=== PATIENT | female | born 1945 | race Caucasian/White ===

== ENCOUNTER → 2017-06-16 | Outpatient (CLI) | payer MEDICARE, OTHER ==
[~2017-06-16] MED LIST: BISO1TAB3 PC; BISO1TAB63; LEVO150T6 PO; LEVO175T3; LISI10TA2; NAPR-243 PO; PRD20T PO
== END ==
LOC: RAD 09:57
PROVIDERS: ATTEND Internal Medicine
DX: Z12.31 Encounter for screening mammogram for malignant neoplasm of breast (principal)
CPT/HCPCS: 77067

== ENCOUNTER → 2017-06-29 | Outpatient (CLI) | payer MEDICARE, OTHER ==
--- NOTE | 2017-06-29 08:13 | Diagnostic Imaging Report ---
PROCEDURE: US abdomen complete. TECHNIQUE: Multiple real-time grayscale images were obtained over the abdomen in various projections. INDICATION: Right upper quadrant pain. FINDINGS: The pancreas is obscured by bowel gas. The liver is enlarged measuring 20 cm craniocaudally with increased echogenicity suggestive of fatty infiltration or hepatitis. The color flow demonstrates hepatopetal flow in the portal vein. The gallbladder has been surgically removed. The spleen is 10.5 cm in length. The CBD is obscured. The right kidney is 10 and the left kidney is 11.6 cm in length. There is no hydronephrosis or focal lesion. The abdominal aorta is 2 cm in caliber and the IVC appears unremarkable. No fluid collection in the abdomen or ascites is seen. IMPRESSION: The liver is enlarged with increased echogenicity suggestive of fatty infiltration or hepatitis. Dictated by: Dictated on workstation # [id number]
== END ==
LOC: RAD 07:01
PROVIDERS: ATTEND Nurse Practitioner
DX: R16.0 Hepatomegaly, not elsewhere classified (principal); R10.11 Right upper quadrant pain
CPT/HCPCS: 76700

== ENCOUNTER → 2017-07-01 | Outpatient (CLI) | payer MEDICARE, OTHER | LOC: LAB 15:28 | PROVIDERS: ATTEND Internal Medicine | DX: R93.2 Abnormal findings on diagnostic imaging of liver and biliary tract (principal); K75.9 Inflammatory liver disease, unspecified | CPT/HCPCS: 36415; 80074 ==

== ENCOUNTER 2017-11-11 20:00 | Emergency (ER) | payer MEDICARE, OTHER ==
[~2017-11-11] VITALS: Ht 162.6 cm; Wt 90.7 kg
[2017-11-11] MEDS ORDERED: NS IV 1000 ML 1,000 ML IV ONE (20:23)
[2017-11-11 20:32] LABS: BASOPHILS % (AUTO) 0 % (0-10); EOSINOPHILS # (AUTO) 0.1 10^3/uL (0.0-0.3); EOSINOPHILS % (AUTO) 2 % (0-10); HEMATOCRIT 38 % (35-52); HEMOGLOBIN 13.9 G/DL (11.5-16.0); LYMPHOCYTES # (AUTO) 1.3 X 10^3 (1.0-4.0); LYMPHOCYTES % (AUTO) 27 % (12-44); MEAN CORPUSCULAR HEMOGLOBIN 31 PG (25-34); MEAN CORPUSCULAR HGB CONC 37 G/DL (32-36); MEAN CORPUSCULAR VOLUME 84 FL (80-99); MEAN PLATELET VOLUME 9.8 FL (7.4-10.4); MONOCYTES # (AUTO) 0.4 X 10^3 (0.0-1.0); MONOCYTES % (AUTO) 8 % (0-12); NEUTROPHILS % (AUTO) 63 % (42-75); PLATELET COUNT 256 10^3/uL (130-400); RED BLOOD COUNT 4.52 10^6/uL (4.35-5.85); RED CELL DISTRIBUTION WIDTH 12.5 % (10.0-14.5); WHITE BLOOD COUNT 4.8 10^3/uL (4.3-11.0)
[2017-11-11 21:01] LABS: ALBUMIN 4.1 GM/DL (3.2-4.5); BILIRUBIN,TOTAL 0.4 MG/DL (0.1-1.0); CALCIUM 9.3 MG/DL (8.5-10.1); CREATININE SERUM 1.23 MG/DL (0.60-1.30); POTASSIUM 4.1 MMOL/L (3.6-5.0); TOTAL PROTEIN 7.3 GM/DL (6.4-8.2)
[2017-11-11 21:18] LABS: BILIRUBIN,URINE NEGATIVE (NEGATIVE); CLARITY,URINE CLEAR; COLOR,URINE YELLOW; GLUCOSE, URINE (UA) 4+ (NEGATIVE); KETONES,URINE 1+ (NEGATIVE); LEUKOCYTE ESTERASE ,URINE 1+ (NEGATIVE); NITRITE,URINE POSITIVE (NEGATIVE); PH,URINE 5 (5-9); PROTEIN,URINE NEGATIVE (NEGATIVE); UROBILINOGEN,URINE NORMAL (NORMAL)
[2017-11-11 21:21] LABS: FREE T4 (FREE THYROXINE) 1.36 NG/DL (0.70-1.48)
[2017-11-11 21:25] LABS: BACTERIA,URINE FEW /HPF; RBC,URINE RARE /HPF
[2017-11-11] MEDS ORDERED: NS IV 500 ML 500 ML IV ONE (21:36)
[2017-11-11] MEDS ORDERED: cefTRIAXone INJECTION 1,000 MG in NS (IVPB) 50 ML IV ONE (21:45)
[2017-11-11] MEDS ORDERED: inSUlin (REGULAR) HUMAN 1 UNIT/0.01 ML (CHARGE PER UNIT) SC ONE (21:45)
--- NOTE | 2017-11-11 21:49 | ED General ---
General Chief Complaint: Glucose Problems Stated Complaint: BLOOD GLUCOSE LEVEL OF 576 Nursing Triage Note: PT PRESENTS TO ER WITH COMPLAINT OF HIGH BLOOD SUGAR. PT STATES BLOOD SUGAR AT HOME WAS 576. PT STATES THAT SHE WAS HAVING DRY MOUTH AND INCREASED THIRST AND SOMEONE TOLD HER TO CHECK HER BLOOD SUGAR. SHE STATES SHE USED HER HUSBANDS GLUCOMETER TO CHECK IT. Nursing Sepsis Screen: No Definite Risk Source of Information: Patient Exam Limitations: No Limitations History of Present Illness Date Seen by Provider: Nov 11, 2017 Time Seen by Provider: 20:20 Initial Comments This 72-year-old woman presents to emergency room with complaints of polydipsia and polyuria. She checked her blood sugar at the advice of her family and found it to be 536. She has no history of diabetes but has had some borderline blood sugars in the past. She also reports having a recent vaginal candidiasis which she treated with Monistat. She has hypertension and hypothyroidism. Her primary care provider is Dr. Blake. Her fingerstick blood sugar on presentation was 513. Allergies and Home Medications Allergies Coded Allergies: No Known Drug Allergies (Unverified , 11/11/17) Home Medications Bisoprolol Fumarate/Hctz 1 Each Tablet, 1 TAB PC BID, #60 (Reported) Cephalexin 500 Mg Capsule, 500 MG PO TID, #15 Prescribed by: MILES CROWLEY on 11/11/17 2218 Levothyroxine Sodium 150 Mcg Tablet, 1 TAB PO DAILY, #90 (Reported) Prednisone 20 Mg Tab, 20 MG PO BID, #2 Prescribed by: VIKY FINN on 04/13/16 2252 Constitutional: no symptoms reported EENTM: no symptoms reported Respiratory: no symptoms reported Cardiovascular: no symptoms reported Gastrointestinal: no symptoms reported Genitourinary: see HPI : No Musculoskeletal: no symptoms reported Skin: no symptoms reported Psychiatric/Neurological: No Symptoms Reported Hematologic/Lymphatic: No Symptoms Reported Past Omjxkvi-Fqsrmi-Xinzli Hx Patient Social History Alcohol Use: Denies Use Recreational Drug Use: No Smoking Status: Never a Smoker Recent Foreign Travel: No Contact w/Someone Who Travel: No Recent Infectious Disease Expo: No Immunizations Up To Date Tetanus Booster (TDap): Unknown Seasonal Allergies Seasonal Allergies: No Surgeries History of Surgeries: Yes Surgeries: Gallbladder, Orthopedic Respiratory History of Respiratory Disorde: No Cardiovascular History of Cardiac Disorders: Yes Cardiac Disorders: Hypertension Neurological History of Neurological Disord: No 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 Genitourinary History of Genitourinary Disor: No Gastrointestinal History of Gastrointestinal Di: No Musculoskeletal History of Musculoskeletal Dis: No Endocrine History of Endocrine Disorders: Yes Endocrine Disorders: Hypothyroidsim, Diabetes, Non-Insulin dep HEENT History of HEENT Disorders: No Cancer History of Cancer: No Psychosocial History of Psychiatric Problem: No Integumentary History of Skin or Integumenta: No Blood Transfusions History of Blood Disorders: No Physical Exam Vital Signs Vital Signs - First Documented 11/11/17 20:20 Temp 98.0 Pulse 80 Resp 18 B/P (MAP) 197/111 (139) Pulse Ox 97 O2 Delivery Room Air Capillary Refill : Less Than 3 Seconds General Appearance: No Apparent Distress, WD/WN HEENT: PERRL/EOMI, Normal ENT Inspection, Pharynx Normal Neck: Normal Inspection Respiratory: Lungs Clear, Normal Breath Sounds, No Accessory Muscle Use, No Respiratory Distress Cardiovascular: Regular Rate, Rhythm, No Edema, No Murmur Gastrointestinal: Normal Bowel Sounds, Non Tender, Soft Extremity: Normal Inspection, No Pedal Edema Neurologic/Psychiatric: Alert, Oriented x3, No Motor/Sensory Deficits, Normal 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, 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 Norm as Tested Skin: Normal Color, Warm/Dry Progress/Results/Core Measures Suspected Sepsis Recent Fever Within 48 Hours: No Infection Criteria Present: None New/Unexplained Altered Menta: No Sepsis Screen: No Definite Risk Sepsis Diagnosis: SIRS Temperature:98.0 Pulse: 80 Respiratory Rate: 18 Laboratory Tests 11/11/17 20:20: White Blood Count 4.8 Blood Pressure 197 /111 Mean: 139 Laboratory Tests 11/11/17 20:20: Creatinine 1.23, Platelet Count 256, Total Bilirubin 0.4 Results/Orders Lab Results Laboratory Tests Test 11/11/17 20:20 11/11/17 21:09 11/11/17 22:18 11/11/17 22:45 Range/Units White Blood Count 4.8 4.3-11.0 10^3/uL Red Blood Count 4.52 4.35-5.85 10^6/uL Hemoglobin 13.9 11.5-16.0 G/DL Hematocrit 38 35-52 % Mean Corpuscular Volume 84 80-99 FL Mean Corpuscular Hemoglobin 31 25-34 PG Mean Corpuscular Hemoglobin Concent 37 H 32-36 G/DL Red Cell Distribution Width 12.5 10.0-14.5 % Platelet Count 256 130-400 10^3/uL Mean Platelet Volume 9.8 7.4-10.4 FL Neutrophils (%) (Auto) 63 42-75 % Lymphocytes (%) (Auto) 27 12-44 % Monocytes (%) (Auto) 8 0-12 % Eosinophils (%) (Auto) 2 0-10 % Basophils (%) (Auto) 0 0-10 % Neutrophils # (Auto) 3.0 1.8-7.8 X 10^3 Lymphocytes # (Auto) 1.3 1.0-4.0 X 10^3 Monocytes # (Auto) 0.4 0.0-1.0 X 10^3 Eosinophils # (Auto) 0.1 0.0-0.3 10^3/uL Basophils # (Auto) 0.0 0.0-0.1 10^3/uL Sodium Level 135 135-145 MMOL/L Potassium Level 4.1 3.6-5.0 MMOL/L Chloride Level 101 98-107 MMOL/L Carbon Dioxide Level 20 L 21-32 MMOL/L Anion Gap 14 5-14 MMOL/L Blood Urea Nitrogen 13 7-18 MG/DL Creatinine 1.23 0.60-1.30 MG/DL Estimat Glomerular Filtration Rate 43 BUN/Creatinine Ratio 11 Glucose Level 595 *H 70-105 MG/DL Glucometer 513 *H 421 *H 331 H 70-110 MG/DL Calcium Level 9.3 8.5-10.1 MG/DL Total Bilirubin 0.4 0.1-1.0 MG/DL Aspartate Amino Transf (AST/SGOT) 16 5-34 U/L Alanine Aminotransferase (ALT/SGPT) 24 0-55 U/L Alkaline Phosphatase 77 40-136 U/L Total Protein 7.3 6.4-8.2 GM/DL Albumin 4.1 3.2-4.5 GM/DL Thyroid Stimulating Hormone (TSH) 3.91 0.35-4.94 UIU/ML Free Thyroxine 1.36 0.70-1.48 NG/DL Urine Color YELLOW Urine Clarity CLEAR Urine pH 5 5-9 Urine Specific [place] 1.010 L 1.016-1.022 Urine Protein NEGATIVE NEGATIVE Urine Glucose (UA) 4+ H NEGATIVE Urine Ketones 1+ H NEGATIVE Urine Nitrite POSITIVE H NEGATIVE Urine Bilirubin NEGATIVE NEGATIVE Urine Urobilinogen NORMAL NORMAL MG/DL Urine Leukocyte Esterase 1+ H NEGATIVE Urine RBC (Auto) 1+ H NEGATIVE Urine RBC RARE /HPF Urine WBC 2-5 /HPF Urine Squamous Epithelial Cells 5-10 /HPF Urine Crystals NONE /LPF Urine Bacteria FEW H /HPF Urine Casts NONE /LPF Urine Mucus NEGATIVE /LPF Urine Culture Indicated YES My Orders Orders - MILES FERGUSON MD Accucheck Stat ONCE (11/11/17 20:05) Cbc With Automated Diff (11/11/17 20:23) Comprehensive Metabolic Panel (11/11/17 20:23) Ua Culture If Indicated (11/11/17 20:23) Saline Lock/Iv-Start (11/11/17 20:23) Ns Iv 1000 Ml (Sodium Chloride 0.9%) (11/11/17 20:23) Accucheck Stat ONCE (11/11/17 20:23) Thyroid Stimulating Hormone (11/11/17 20:23) Free T4 (Free Thyroxine) (11/11/17 20:23) Urine Culture (11/11/17 21:09) Insulin (Regular) Human (Humulin R (Per (11/11/17 21:45) Ns Iv 500 Ml (Sodium Chloride 0.9%) (11/11/17 21:36) Ceftriaxone Injection (Rocephin Injectio (11/11/17 21:45) Insulin (Regular) Human (Humulin R (Per (11/11/17 22:30) Hemoglobin A1c (11/11/17 22:23) Accucheck Stat ONCE (11/11/17 22:28) Medications Given in ED Current Medications Medications Dose Ordered Sig/Dane Route Start Time Stop Time Status Last Admin Dose Admin Ceftriaxone Sodium 1000 mg/ Sodium Chloride 50 ml @ 100 mls/hr ONCE ONCE IV 11/11/17 21:45 11/11/17 22:14 DC 11/11/17 21:48 100 MLS/HR Insulin Human Regular 5 unit ONCE ONCE IV 11/11/17 22:30 11/11/17 22:31 DC 11/11/17 22:24 5 UNIT Insulin Human Regular 5 unit ONCE ONCE SC 11/11/17 21:45 11/11/17 21:46 DC 11/11/17 21:49 5 UNIT Sodium Chloride 500 ml @ 0 mls/hr Q0M ONCE IV 11/11/17 21:36 11/11/17 21:37 DC 11/11/17 21:47 500 MLS/HR Sodium Chloride 1,000 ml @ 0 mls/hr Q0M ONCE IV 11/11/17 20:23 11/11/17 20:25 DC 11/11/17 20:31 1,000 MLS/HR Vital Signs/I&O Vital Sign - Last 12Hours 11/11/17 20:20 Temp 98.0 Pulse 80 Resp 18 B/P (MAP) 197/111 (139) Pulse Ox 97 O2 Delivery Room Air Capillary Refill : Less Than 3 Seconds Blood Pressure Mean: 139 Point of Care Testing Finger Stick Blood Glucose: 513 Blood Glucose Action Taken: AND RN NOTIFIED Progress Note #1: Progress Note Patient received 1500 mL of normal saline and IV boluses along with 5 units of insulin. Rocephin was given for possible urinary tract infection. Thyroid studies were normal. Progress Note #2: Time: 22:24 Progress Note Fingerstick blood sugar was 421. Patient will receive another 5 units of IV insulin. We will continue to treat in 5 unit dosing increments until her blood sugar is down near 300. Progress Note #3: Time: 22:55 Progress Note Fingerstick blood sugar after the second dose of insulin was 331. Patient was felt stable enough to return home and was discharged with prescriptions for metformin and Keflex. Departure Impression Impression: Primary Impression: New onset type 2 diabetes mellitus Additional Impressions: Hyperglycemia Urinary tract infection Qualified Codes: N39.0 - Urinary tract infection, site not specified Disposition: 01 HOME, SELF-CARE Condition: Improved Departure-Patient Inst. Referrals: MEJIA BLAKE MD (PCP/Family) Primary Care Physician Patient Instructions: Diabetes Type 2 (DC), Urinary Tract Infections in Adults Add. Discharge Instructions: Drink plenty of clear liquids. Eat a very low carbohydrate, low sugar diet. Eat plenty of lean meats and vegetables. Start metformin as prescribed. Check your blood sugars fasting in the morning and 2 hours after meals. Bring those blood sugars to Dr. Blake. Complete your antibiotics as prescribed and follow-up on the urine culture results with Dr. Blake after 48 hours. Return to the ER if you have worsening symptoms. All discharge instructions reviewed with patient and/or family. Voiced understanding. Scripts Metformin HCl (Metformin HCl) 500 Mg Tablet 500 MG PO BID, #60 TAB Prov: MILES FERGUSON MD 11/11/17 Cephalexin (Keflex) 500 Mg Capsule 500 MG PO TID, #15 CAP Prov: MILES FERGUSON MD 11/11/17 Copy Copies To 1: MEJIA BLAKE MD, JOSHUA T MD Nov 11, 2017 21:49
[2017-11-11] MEDS ORDERED: CEPH-507 PO (22:18)
[2017-11-11] MEDS ORDERED: inSUlin (REGULAR) HUMAN 1 UNIT/0.01 ML (CHARGE PER UNIT) IV ONE (22:30)
[2017-11-11] MEDS ORDERED: METF500T4 PO (22:56)
[2017-11-11 23:01] VITALS: BP 176/79
== END 2017-11-11 23:01 | disposition home or self-care (01) ==
LOC: EDUNIT# 20:00 → ER 20:02
DX: E11.65 Type 2 diabetes mellitus with hyperglycemia (principal); N39.0 Urinary tract infection, site not specified; I10 Essential (primary) hypertension; E03.9 Hypothyroidism, unspecified; Z79.52 Long term (current) use of systemic steroids
CPT/HCPCS: 36415; 80053; 81000; 82962; 83036; 84439; 84443; 85025; 87088; 96361; 96365; 96372; 96375

== ENCOUNTER 2017-11-16 20:49 | Emergency (ER) | payer MEDICARE, OTHER ==
[~2017-11-16] VITALS: Ht 167.6 cm; Wt 86.2 kg
[~2017-11-16 20:49] MED LIST changes: +CEPH-507 PO; +METF500T4 PO
--- NOTE | 2017-11-16 22:50 | ED General ---
General Chief Complaint: Glucose Problems Stated Complaint: ELEV BLOOD SUGAR Nursing Triage Note: PT STATES BLOOD SUGAR HIGH AND NEEDS TO FLY TO [place] ON THURSDAY. FSBS 399 AT HOME Nursing Sepsis Screen: No Definite Risk Source of Information: Patient Exam Limitations: No Limitations History of Present Illness Date Seen by Provider: Nov 16, 2017 Time Seen by Provider: 22:50 Allergies and Home Medications Allergies Coded Allergies: No Known Drug Allergies (Unverified , 11/11/17) Home Medications Bisoprolol Fumarate/Hctz 1 Each Tablet, 1 TAB PC BID, #60 (Reported) Cephalexin 500 Mg Capsule, 500 MG PO TID, #15 Prescribed by: MILES CROWLEY on 11/11/17 2218 Levothyroxine Sodium 150 Mcg Tablet, 1 TAB PO DAILY, #90 (Reported) Metformin HCl 500 Mg Tablet, 500 MG PO BID, #60 Prescribed by: MILES CROWLEY on 11/11/17 2256 Prednisone 20 Mg Tab, 20 MG PO BID, #2 Prescribed by: VIKY FINN on 04/13/16 2252 Past Mbimbbt-Cggoar-Hnmfjb Hx Patient Social History Alcohol Use: Denies Use Recreational Drug Use: No Smoking Status: Never a Smoker Recent Foreign Travel: No Contact w/Someone Who Travel: No Recent Infectious Disease Expo: No Recent Hopitalizations: No Immunizations Up To Date Tetanus Booster (TDap): Unknown Seasonal Allergies Seasonal Allergies: No Surgeries History of Surgeries: Yes Surgeries: Gallbladder, Orthopedic Respiratory History of Respiratory Disorde: No Cardiovascular History of Cardiac Disorders: Yes Cardiac Disorders: Hypertension Neurological History of Neurological Disord: No 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 Genitourinary History of Genitourinary Disor: No Gastrointestinal History of Gastrointestinal Di: No Musculoskeletal History of Musculoskeletal Dis: No Endocrine History of Endocrine Disorders: Yes Endocrine Disorders: Hypothyroidsim, Diabetes, Non-Insulin dep HEENT History of HEENT Disorders: No Cancer History of Cancer: No Psychosocial History of Psychiatric Problem: No Integumentary History of Skin or Integumenta: No Blood Transfusions History of Blood Disorders: No Physical Exam Vital Signs Vital Signs - First Documented 11/16/17 20:52 Temp 98.1 Pulse 64 Resp 18 B/P (MAP) 141/82 (101) Pulse Ox 97 Capillary Refill : Less Than 3 Seconds Progress/Results/Core Measures Suspected Sepsis Recent Fever Within 48 Hours: No Infection Criteria Present: None New/Unexplained Altered Menta: No Sepsis Screen: No Definite Risk Sepsis Diagnosis: SIRS Temperature:98.1 Pulse: 64 Respiratory Rate: 18 Laboratory Tests 11/16/17 23:32: White Blood Count 3.9L Blood Pressure 141 /82 Mean: 101 Laboratory Tests 11/16/17 23:32: Creatinine 1.05, Platelet Count 263, Total Bilirubin 0.5 Results/Orders Lab Results Laboratory Tests Test 11/16/17 22:23 11/16/17 22:38 11/16/17 23:32 Range/Units Urine Color YELLOW Urine Clarity CLEAR Urine pH 5 5-9 Urine Specific [place] 1.015 L 1.016-1.022 Urine Protein 1+ H NEGATIVE Urine Glucose (UA) 4+ H NEGATIVE Urine Ketones 1+ H NEGATIVE Urine Nitrite NEGATIVE NEGATIVE Urine Bilirubin NEGATIVE NEGATIVE Urine Urobilinogen NORMAL NORMAL MG/DL Urine Leukocyte Esterase 1+ H NEGATIVE Urine RBC (Auto) NEGATIVE NEGATIVE Urine RBC 0-2 /HPF Urine WBC 2-5 /HPF Urine Crystals NONE /LPF Urine Bacteria NONE /HPF Urine Casts NONE /LPF Urine Mucus NEGATIVE /LPF Urine Culture Indicated NO Glucometer 346 H 70-110 MG/DL White Blood Count 3.9 L 4.3-11.0 10^3/uL Red Blood Count 4.66 4.35-5.85 10^6/uL Hemoglobin 14.3 11.5-16.0 G/DL Hematocrit 39 35-52 % Mean Corpuscular Volume 84 80-99 FL Mean Corpuscular Hemoglobin 31 25-34 PG Mean Corpuscular Hemoglobin Concent 37 H 32-36 G/DL Red Cell Distribution Width 12.5 10.0-14.5 % Platelet Count 263 130-400 10^3/uL Mean Platelet Volume 9.6 7.4-10.4 FL Neutrophils (%) (Auto) 54 42-75 % Lymphocytes (%) (Auto) 36 12-44 % Monocytes (%) (Auto) 9 0-12 % Eosinophils (%) (Auto) 1 0-10 % Basophils (%) (Auto) 0 0-10 % Neutrophils # (Auto) 2.1 1.8-7.8 X 10^3 Lymphocytes # (Auto) 1.4 1.0-4.0 X 10^3 Monocytes # (Auto) 0.3 0.0-1.0 X 10^3 Eosinophils # (Auto) 0.0 0.0-0.3 10^3/uL Basophils # (Auto) 0.0 0.0-0.1 10^3/uL Sodium Level 135 135-145 MMOL/L Potassium Level 3.9 3.6-5.0 MMOL/L Chloride Level 101 98-107 MMOL/L Carbon Dioxide Level 21 21-32 MMOL/L Anion Gap 13 5-14 MMOL/L Blood Urea Nitrogen 15 7-18 MG/DL Creatinine 1.05 0.60-1.30 MG/DL Estimat Glomerular Filtration Rate 52 BUN/Creatinine Ratio 14 Glucose Level 406 *H 70-105 MG/DL Calcium Level 9.5 8.5-10.1 MG/DL Total Bilirubin 0.5 0.1-1.0 MG/DL Aspartate Amino Transf (AST/SGOT) 16 5-34 U/L Alanine Aminotransferase (ALT/SGPT) 23 0-55 U/L Alkaline Phosphatase 68 40-136 U/L Total Protein 6.9 6.4-8.2 GM/DL Albumin 3.9 3.2-4.5 GM/DL Lipase 9 8-78 U/L TSH Mc[place]osh Testing 4.12 0.35-4.94 UIU/ML My Orders Orders - ZINA GOODEN Cbc With Automated Diff (11/16/17 23:08) Comprehensive Metabolic Panel (11/16/17 23:08) Lipase (11/16/17 23:08) Thyroid Analyzer (11/16/17 23:08) Ua Culture If Indicated (11/16/17 23:08) Saline Lock/Iv-Start (11/16/17 23:08) Ns Iv 1000 Ml (Sodium Chloride 0.9%) (11/16/17 23:08) Insulin (Regular) Human (Humulin R (Per (11/16/17 23:08) Ct Abdomen/Pelvis W (11/16/17 23:08) Iohexol Injection (Omnipaque 350 Mg/Ml 1 (11/17/17 00:00) Pharmacy Communication (Pharmacy Communi (11/16/17 23:53) Pharmacy Communication (Pharmacy Communi (11/16/17 23:53) Accucheck Stat ONCE (11/17/17 00:32) Medications Given in ED Current Medications Medications Dose Ordered Sig/Dane Route Start Time Stop Time Status Last Admin Dose Admin Iohexol 100 ml ONCE ONCE IV 11/17/17 00:00 11/17/17 00:01 DC 11/16/17 23:58 100 ML Sodium Chloride 1,000 ml @ 0 mls/hr Q0M ONCE IV 11/16/17 23:08 11/16/17 23:10 DC 11/16/17 23:41 0 MLS/HR Vital Signs/I&O Vital Sign - Last 12Hours 11/16/17 20:52 Temp 98.1 Pulse 64 Resp 18 B/P (MAP) 141/82 (101) Pulse Ox 97 Capillary Refill : Less Than 3 Seconds Blood Pressure Mean: 101 Point of Care Testing Finger Stick Blood Glucose: 346 Blood Glucose Action Taken: nicole gooden notified Departure Impression Impression: Primary Impression: Diabetes mellitus with hyperglycemia Qualified Codes: E11.65 - Type 2 diabetes mellitus with hyperglycemia Additional Impressions: Urinary tract infection Qualified Codes: N30.00 - Acute cystitis without hematuria Volume depletion Disposition: HOME, SELF-CARE Condition: Improved Departure-Patient Inst. Decision time for Depature: 00:43 Referrals: MEJIA BLAKE MD (PCP/Family) Primary Care Physician Patient Instructions: Dehydration, Adult (DC), Diabetes Diet , Diabetes Type 2 (DC), Urinary Tract Infection, Adult (DC) Add. Discharge Instructions: All discharge instructions reviewed with patient and/or family. Voiced understanding. Medications as instructed. Monitor blood sugars closely. Continue home medications as instructed by Dr. Blake. Drink plenty of fluids. Follow-up with Dr. Blake when he returned from [place] for recheck as previously scheduled. Call Dr. Blake's office tomorrow afternoon to give an update on your blood sugars. Return to the emergency department immediately for worsened symptoms or any other concerns. Scripts Ampicillin Trihydrate (Ampicillin Trihydrate) 500 Mg Capsule 500 MG PO QID, #20 CAP 0 Refills Prov: ZINA GOODEN 11/17/17 ZINA GOODEN Nov 16, 2017 22:50
[2017-11-16] MEDS ORDERED: NS IV 1000 ML 1,000 ML IV ONE (23:08)
[2017-11-16] MEDS ORDERED: inSUlin (REGULAR) HUMAN 1 UNIT/0.01 ML (CHARGE PER UNIT) IV STA (23:08)
[2017-11-16 23:28] LABS: BILIRUBIN,URINE NEGATIVE (NEGATIVE); CLARITY,URINE CLEAR; COLOR,URINE YELLOW; GLUCOSE, URINE (UA) 4+ (NEGATIVE); KETONES,URINE 1+ (NEGATIVE); LEUKOCYTE ESTERASE ,URINE 1+ (NEGATIVE); NITRITE,URINE NEGATIVE (NEGATIVE); PH,URINE 5 (5-9); PROTEIN,URINE 1+ (NEGATIVE); RBC,URINE 0-2 /HPF; UROBILINOGEN,URINE NORMAL (NORMAL)
[2017-11-16 23:42] LABS: BASOPHILS % (AUTO) 0 % (0-10); EOSINOPHILS % (AUTO) 1 % (0-10); HEMATOCRIT 39 % (35-52); HEMOGLOBIN 14.3 G/DL (11.5-16.0); LYMPHOCYTES # (AUTO) 1.4 X 10^3 (1.0-4.0); LYMPHOCYTES % (AUTO) 36 % (12-44); MEAN CORPUSCULAR HEMOGLOBIN 31 PG (25-34); MEAN CORPUSCULAR HGB CONC 37 G/DL (32-36); MEAN CORPUSCULAR VOLUME 84 FL (80-99); MEAN PLATELET VOLUME 9.6 FL (7.4-10.4); MONOCYTES # (AUTO) 0.3 X 10^3 (0.0-1.0); MONOCYTES % (AUTO) 9 % (0-12); NEUTROPHILS # (AUTO) 2.1 X 10^3 (1.8-7.8); NEUTROPHILS % (AUTO) 54 % (42-75); PLATELET COUNT 263 10^3/uL (130-400); RED BLOOD COUNT 4.66 10^6/uL (4.35-5.85); RED CELL DISTRIBUTION WIDTH 12.5 % (10.0-14.5); WHITE BLOOD COUNT 3.9 10^3/uL (4.3-11.0)
[2017-11-17] MEDS ORDERED: IOHEXOL 350 MG/ML 100 ML (OMNIPAQUE 350) VIAL IV ONE
[2017-11-17 00:07] LABS: ALBUMIN 3.9 GM/DL (3.2-4.5); BILIRUBIN,TOTAL 0.5 MG/DL (0.1-1.0); CALCIUM 9.5 MG/DL (8.5-10.1); CREATININE SERUM 1.05 MG/DL (0.60-1.30); POTASSIUM 3.9 MMOL/L (3.6-5.0); TOTAL PROTEIN 6.9 GM/DL (6.4-8.2)
[2017-11-17 00:26] LABS: TSH (THYROID ANALYZER) 4.12 UIU/ML (0.35-4.94)
[2017-11-17] MEDS ORDERED: AMPI500C9 PO (00:50)
[2017-11-17 01:20] VITALS: BP 157/90
--- NOTE | 2017-11-17 06:59 | Diagnostic Imaging Report ---
PROCEDURE: CT abdomen and pelvis with contrast. TECHNIQUE: Multiple contiguous axial images were obtained through the abdomen and pelvis after administration of intravenous contrast. INDICATION: Hyperglycemia. Comparison is made with prior examination from 01/26/2015. FINDINGS: The heart size is normal. The lung bases are clear. The liver is normal in size without focal lesions. The gallbladder is surgically absent. There is no biliary duct dilatation. The spleen is normal. The pancreas, adrenal glands and kidneys are unremarkable. The aorta is nonaneurysmal. There is some mild inflammatory induration of the central mesentery with a few subcentimeter lymph nodes. There is a small periumbilical hernia containing only omental fat. There is no ascites. There is no free air. The evaluation of the pelvic structures is limited due to beam hardening artifact from bilateral hip arthroplasties. There does appear to be some sigmoid diverticular disease without evidence of diverticulitis. There is no obvious pelvic mass, adenopathy or free fluid. There are mild degenerative changes in lower lumbar spine. IMPRESSION: Induration of the central mesenteric fat with a few subcentimeter lymph nodes. This is similar to prior examination and is nonspecific, however, may reflect mesenteric adenitis. Recommend clinical correlation. Diverticular disease without evidence of diverticulitis. Limited evaluation of pelvic structures due to beam hardening artifact from bilateral hip arthroplasties. Dictated by: Dictated on workstation # [id number]
--- OUTSIDE RECORDS SUMMARY | 2017-11-19 13:03 | XMS REPORT | Continuity of Care Document ---
Author Author [facility] Organization [facility] Address Unknown Phone Unavailable Allergies Active Description Code Type Severity Reaction Onset Reported/Identified Relationship to Patient Clinical Status Yes No Known Drug Allergies [id number] Drug Allergy Unknown N/A 11/11/2017 Medications There is no data. Problems Date Dx Coded Attending Type Code Diagnosis Diagnosed By 01/26/2015 JOSELIN CARTER, FERNANDA Moody Ot 789.01 ABDOMINAL PAIN, RIGHT UPPER QUADRANT 01/26/2015 Ot 715.35 01/26/2015 Ot 719.45 01/26/2015 Ot V49.81 01/26/2015 Ot V82.81 01/26/2015 Ot V76.12 01/26/2015 Ot V58.61 01/26/2015 Ot V58.83 01/26/2015 Ot V58.61 01/26/2015 Ot V58.83 01/26/2015 Ot V43.64 01/26/2015 Ot V58.61 01/26/2015 Ot V58.83 01/26/2015 Ot V58.61 01/26/2015 Ot V58.83 01/26/2015 AJ CARTER, DEBBIE Lunsford Ot V76.12 01/26/2015 DEBBIE ROCHA MD Ot 786.05 01/26/2015 DEBBIE ROCHA MD Ot V76.12 05/08/2015 DRAKE BUSTILLOS PLUGGER MAN Ot V76.12 06/01/2015 DRAKE BUSTILLOS PLUGGER MAN Ot V76.12 10/01/2015 DRAKE BUSTILLOS PLUGGER MAN Ot V76.12 10/25/2015 DRAKE BUSTILLOS PLUGGER MAN Ot R05 10/25/2015 DRAKE BUTSILLOS PLUGGER MAN Ot R07.81 11/07/2015 DRAKE BUSTILLOS PLUGGER MAN Ot R05 11/07/2015 DRAKE BUSTILLOS PLUGGER MAN Ot R07.81 04/13/2016 VIKY FINN APRN Ot S70.361A INSECT BITE (NONVENOMOUS), RIGHT THIGH, 04/13/2016 VIKY FINN APRN Ot W57.XXXA BIT/STUNG BY NONVENOM INSECT OTH NONVE 04/13/2016 VIKY FINN APRN Ot Y92.017 GARDEN OR YARD IN SINGLE-FAMILY (PRIVATE 04/13/2016 VIKY FINN APRN Ot Y93.H2 ACTIVITY, GARDENING AND LANDSCAPING 04/13/2016 VIKY FINN APRN Ot Y99.8 OTHER EXTERNAL CAUSE STATUS 04/17/2016 VIKY FINN APRN Ot S70.361A INSECT BITE (NONVENOMOUS), RIGHT THIGH, 04/17/2016 VIKY FINN APRN Ot W57.XXXA BIT/STUNG BY NONVENOM INSECT OTH NONVE 04/17/2016 VIKY FINN APRN Ot Y92.017 GARDEN OR YARD IN SINGLE-FAMILY (PRIVATE 04/17/2016 VIKY FINN APRN Ot Y93.H2 ACTIVITY, GARDENING AND LANDSCAPING 04/17/2016 VIKY FINN APRN Ot Y99.8 OTHER EXTERNAL CAUSE STATUS 05/05/2016 VIKY FINN APRN Ot S70.361A INSECT BITE (NONVENOMOUS), RIGHT THIGH, 05/05/2016 VIKY FINN APRN Ot W57.XXXA BIT/STUNG BY NONVENOM INSECT OTH NONVE 05/05/2016 VIKY FINN APRN Ot Y92.017 GARDEN OR YARD IN SINGLE-FAMILY (PRIVATE 05/05/2016 VIKY FINN APRN Ot Y93.H2 ACTIVITY, GARDENING AND LANDSCAPING 05/05/2016 VIKY FINN APRN Ot Y99.8 OTHER EXTERNAL CAUSE STATUS 05/08/2016 VIKY FINN APRN Ot S70.361A INSECT BITE (NONVENOMOUS), RIGHT THIGH, 05/08/2016 VIKY FINN APRN Ot W57.XXXA BIT/STUNG BY NONVENOM INSECT OTH NONVE 05/08/2016 VIKY FINN APRN Ot Y92.017 GARDEN OR YARD IN SINGLE-FAMILY (PRIVATE 05/08/2016 VIKY FINN APRN Ot Y93.H2 ACTIVITY, GARDENING AND LANDSCAPING 05/08/2016 VIKY FINN RECRUITING MANAGER Ot Y99.8 OTHER EXTERNAL CAUSE STATUS 06/16/2017 Ot V58.61 ANTICOAGULANTS,LT,CURRENT USE 06/16/2017 Ot V58.83 ENCOUNTER FOR THERAPEUTIC DRUG MONITORIN 06/16/2017 Ot V58.61 ANTICOAGULANTS,LT,CURRENT USE 06/16/2017 Ot V58.83 ENCOUNTER FOR THERAPEUTIC DRUG MONITORIN 06/16/2017 Ot V43.64 HIP JOINT REPLACEMENT STATUS 06/16/2017 Ot V58.61 ANTICOAGULANTS,LT,CURRENT USE 06/16/2017 Ot V58.83 ENCOUNTER FOR THERAPEUTIC DRUG MONITORIN 06/16/2017 Ot V58.61 ANTICOAGULANTS,LT,CURRENT USE 06/16/2017 Ot V58.83 ENCOUNTER FOR THERAPEUTIC DRUG MONITORIN 06/16/2017 AJ CARTER, DEBBIE Lunsford Ot V76.12 OTH SCREEN MAMMO-MALIGN NEOPLASM OF CHARLA 06/16/2017 AJ CARTER, DEBBIE Lunsford Ot 786.05 SHORTNESS OF BREATH 06/16/2017 DEBBIE ROCHA MD Ot V76.12 OTH SCREEN MAMMO-MALIGN NEOPLASM OF CHARLA 06/16/2017 DRAKE BUSTILLOS Ot V76.12 OTH SCREEN MAMMO-MALIGN NEOPLASM OF CHARLA 06/16/2017 DRAKE BUSTILLOS PLUGGER MAN Ot R05 COUGH 06/16/2017 DRAKE BUSTILLOS PLUGGER MAN Ot R07.81 PLEURODYNIA 06/16/2017 MEJIA BLAKE MD Ot Z12.31 ENCNTR SCREEN MAMMOGRAM FOR MALIGNANT NE 07/01/2017 JOSE VASQUEZ RECRUITING MANAGER Ot R10.11 RIGHT UPPER QUADRANT PAIN 07/01/2017 JOSE VASQUEZ RECRUITING MANAGER Ot R16.0 HEPATOMEGALY, NOT ELSEWHERE CLASSIFIED 07/07/2017 MEJIA BLAKE MD Ot Z12.31 ENCNTR SCREEN MAMMOGRAM FOR MALIGNANT NE 07/21/2017 JOSE VASQUEZ RECRUITING MANAGER Ot R10.11 RIGHT UPPER QUADRANT PAIN 07/21/2017 JOSE VASQUEZ RECRUITING MANAGER Ot R16.0 HEPATOMEGALY, NOT ELSEWHERE CLASSIFIED 07/21/2017 MEJIA BLAKE MD Ot K75.9 INFLAMMATORY LIVER DISEASE, UNSPECIFIED 07/21/2017 MEJIA BLAKE MD Ot R93.2 ABNORMAL FINDINGS ON DX IMAGING OF LIVER 07/28/2017 JOSE VASQUEZ RECRUITING MANAGER Ot R10.11 RIGHT UPPER QUADRANT PAIN 07/28/2017 JOSE VASQUEZ APRN Ot R16.0 HEPATOMEGALY, NOT ELSEWHERE CLASSIFIED Procedures There is no data. Results Test Result Range Acute hepatitis panel - 07/01/17 15:35 Confirmatory quantitative serum or plasma hepatitis B virus surface antigen measurement Non-Reactive Non-Reactive Hepatitis A virus IgM antibody assay Non-Reactive Non- Reactive Hepatitis B virus core IgM antibody assay Non-Reactive Non-Reactive Serum hepatitis C virus antibody detection Non-Reactive Non-Reactive Capillary blood glucose measurement by glucometer (mass/volume) - 11/11/17 20: 20 Capillary blood glucose measurement by glucometer (mass/volume) 513 mg/dL 70-110 Complete blood count (CBC) with automated white blood cell (WBC) differential - 11/11/17 20:20 Blood leukocytes automated count (number/volume) 4.8 10*3/uL 4.3-11.0 Blood erythrocytes automated count (number/volume) 4.52 10*6/uL 4.35-5.85 Venous blood hemoglobin measurement (mass/volume) 13.9 g/dL 11.5-16.0 Blood hematocrit (volume fraction) 38 % 35-52 Automated erythrocyte mean corpuscular volume 84 [foz_us] 80-99 Automated erythrocyte mean corpuscular hemoglobin (mass per erythrocyte) 31 pg 25-34 Automated erythrocyte mean corpuscular hemoglobin concentration measurement ( mass/volume) 37 g/dL 32-36 Automated erythrocyte distribution width ratio 12.5 % 10.0-14.5 Automated blood platelet count (count/volume) 256 10*3/uL 130-400 Automated blood platelet mean volume measurement 9.8 [foz_us] 7.4-10.4 Automated blood neutrophils/100 leukocytes 63 % 42-75 Automated blood lymphocytes/100 leukocytes 27 % 12-44 Blood monocytes/100 leukocytes 8 % 0-12 Automated blood eosinophils/100 leukocytes 2 % 0-10 Automated blood basophils/100 leukocytes 0 % 0-10 Blood neutrophils automated count (number/volume) 3.0 10*3 1.8-7.8 Blood lymphocytes automated count (number/volume) 1.3 10*3 1.0-4.0 Blood monocytes automated count (number/volume) 0.4 10*3 0.0-1.0 Automated eosinophil count 0.1 10*3/uL 0.0-0.3 Automated blood basophil count (count/volume) 0.0 10*3/uL 0.0-0.1 Comprehensive metabolic panel - 11/11/17 20:20 Serum or plasma sodium measurement (moles/volume) 135 mmol/L 135-145 Serum or plasma potassium measurement (moles/volume) 4.1 mmol/L 3.6-5.0 Serum or plasma chloride measurement (moles/volume) 101 mmol/L 98-107 Carbon dioxide 20 mmol/L 21-32 Serum or plasma anion gap determination (moles/volume) 14 mmol/L 5-14 Serum or plasma urea nitrogen measurement (mass/volume) 13 mg/dL 7-18 Serum or plasma creatinine measurement (mass/volume) 1.23 mg/dL 0.60-1.30 Serum or plasma urea nitrogen/creatinine mass ratio 11 NRG Serum or plasma creatinine measurement with calculation of estimated glomerular filtration rate 43 NRG Serum or plasma glucose measurement (mass/volume) 595 mg/dL 70-105 Serum or plasma calcium measurement (mass/volume) 9.3 mg/dL 8.5-10.1 Serum or plasma total bilirubin measurement (mass/volume) 0.4 mg/dL 0.1-1.0 Serum or plasma alkaline phosphatase measurement (enzymatic activity/volume) 77 U/L 40-136 Serum or plasma aspartate aminotransferase measurement (enzymatic activity/ volume) 16 U/L 5-34 Serum or plasma alanine aminotransferase measurement (enzymatic activity/volume ) 24 U/L 0-55 Serum or plasma protein measurement (mass/volume) 7.3 g/dL 6.4-8.2 Serum or plasma albumin measurement (mass/volume) 4.1 g/dL 3.2-4.5 THYROID STIMULATING HORMONE - 11/11/17 20:20 THYROID STIMULATING HORMONE 3.91 u[iU]/mL 0.35-4.94 Serum or plasma thyroxine (T4) free measurement (mass/volume) - 11/11/17 20:20 Serum or plasma thyroxine (T4) free measurement (mass/volume) 1.36 ng/dL 0.70-1.48 Hemoglobin A1c - 11/11/17 20:20 Blood hemoglobin A1C measurement (mass/volume) 9.5 % 4.0- 5.6 MEAN BLOOD GLUCOSE 226 % <=126 Complete urinalysis with reflex to culture - 11/11/17 21:09 Urine color determination YELLOW NRG Urine clarity determination CLEAR NRG Urine pH measurement by test strip 5 5-9 Specific gravity of urine by test strip 1.010 1.016- 1.022 Urine protein assay by test strip, semi-quantitative NEGATIVE NEGATIVE Urine glucose detection by automated test strip 4+ NEGATIVE Erythrocytes detection in urine sediment by light microscopy 1+ NEGATIVE Urine ketones detection by automated test strip 1+ NEGATIVE Urine nitrite detection by test strip POSITIVE NEGATIVE Urine total bilirubin detection by test strip NEGATIVE NEGATIVE Urine urobilinogen measurement by automated test strip (mass/volume) NORMAL NORMAL Urine leukocyte esterase detection by dipstick 1+ NEGATIVE Automated urine sediment erythrocyte count by microscopy (number/high power field) RARE NRG Automated urine sediment leukocyte count by microscopy (number/high power field ) [HPF] NRG Bacteria detection in urine sediment by light microscopy FEW NRG Squamous epithelial cells detection in urine sediment by light microscopy 5-10 NRG Crystals detection in urine sediment by light microscopy NONE NRG Casts detection in urine sediment by light microscopy NONE NRG Mucus detection in urine sediment by light microscopy NEGATIVE NRG Complete urinalysis with reflex to culture YES NRG Bacterial urine culture - 11/11/17 21:09 URINE CULTURE RESULTS 10,000/ML - 100,000/ML NRG Capillary blood glucose measurement by glucometer (mass/volume) - 11/11/17 22: 18 Capillary blood glucose measurement by glucometer (mass/volume) 421 mg/dL 70-110 Capillary blood glucose measurement by glucometer (mass/volume) - 11/11/17 22: 45 Capillary blood glucose measurement by glucometer (mass/volume) 331 mg/dL 70-110 Encounters ACCT No. Visit Date/Time Discharge Status Pt. Type Provider Facility Loc./Unit Complaint [id number] 11/11/2017 20:02:00 11/11/2017 23:01:00 DIS Emergency MILES FERGUSON MD [facility] ER BLOOD GLUCOSE LEVEL OF 576 [id number] 07/01/2017 15:28:00 07/01/2017 23:59:59 CLS Outpatient MEJIA BLAKE MD [facility] LAB ABNORMAL US LIVER- HEPATITIS [id number] 06/29/2017 07:01:00 06/29/2017 23:59:59 CLS Outpatient JOSE VASQUEZ APRN [facility] RAD RUQ ABD PAIN [id number] 06/16/2017 09:57:00 06/16/2017 23:59:59 CLS Outpatient MEJIA BLAKE MD [facility] RAD SCREENING Z12.31 [id number] 04/13/2016 21:35:00 04/13/2016 22:58:00 DIS Emergency FINNVIKY RECRUITING MANAGER [facility] ER POSSIBLE INSECT BITE/ STING [id number] 10/01/2015 16:07:00 10/01/2015 23:59:59 CLS Outpatient DRAKE BUSTILLOS PLUGGER MAN [facility] RAD COUGH WITH RT RIB PAIN [id number] 05/07/2015 11:25:00 05/07/2015 23:59:59 CLS Outpatient DRAKE BUSTILLOS PLUGGER MAN [facility] RAD SCREENING [id number] 01/26/2015 14:56:00 01/26/2015 18:14:00 DIS Emergency FERNANDA OLIVERA MD [facility] ER RIGHT SIDE ABD PAIN [id number] 05/04/2014 08:06:00 05/04/2014 23:59:59 CLS Outpatient DEBBIE ROCHA MD [facility] RAD ROUTINE [id number] 06/14/2013 06:44:00 06/14/2013 23:59:59 CLS Outpatient DEBBIE ROCHA MD [facility] RAD SOB [id number] 05/03/2013 10:16:00 05/03/2013 23:59:59 CLS Outpatient DEBBIE ROCHA MD [facility] RAD SCREENING [id number] 01/26/2015 18:19:00 Document Registration [id number] 01/26/2015 18:19:00 Document Registration [id number] 01/26/2015 18:19:00 Document Registration [id number] 01/26/2015 15:35:00 Document Registration [id number] 01/25/2013 10:30:00 Document Registration [id number] 01/05/2012 11:30:00 Document Registration [id number] 08/02/2010 08:53:00 Document Registration [id number] 12/05/2009 16:05:00 Document Registration
== END 2017-11-17 01:20 | disposition home or self-care (01) ==
LOC: EDUNIT# 20:49 → ER 20:50
DX: E11.65 Type 2 diabetes mellitus with hyperglycemia (principal); N39.0 Urinary tract infection, site not specified; E86.9 Volume depletion, unspecified; E03.9 Hypothyroidism, unspecified; Z79.84 Long term (current) use of oral hypoglycemic drugs
CPT/HCPCS: 36415; 74177; 80053; 81000; 82962; 83690; 84443; 85025; 96361; 96374

== ENCOUNTER 2018-04-05 09:29 | Outpatient (RCR) | payer MEDICARE, OTHER ==
[~2018-04-05] VITALS: Ht 167.6 cm; Wt 74.8 kg
[~2018-04-05 09:29] MED LIST changes: +AMPI500C9 PO; +METF-397 PO; -METF500T4 PO
== END 2018-05-04 | disposition still patient (30) ==
LOC: DSME 09:29
PROVIDERS: ATTEND Internal Medicine
DX: E11.9 Type 2 diabetes mellitus without complications (principal); I10 Essential (primary) hypertension

== ENCOUNTER → 2018-07-30 | Outpatient (CLI) | payer MEDICARE, OTHER ==
[~2018-07-30] MED LIST changes: +IOHEXOL 350 MG/ML 100 ML (OMNIPAQUE 350) VIAL IV ONE; +NS 250 ML (IVPB) BAG IV ONE
[2018-07-30 09:44] LABS: BUN/CREATININE RATIO 21; CREATININE SERUM 0.86 MG/DL (0.60-1.30); GFR ESTIMATED > 60
--- NOTE | 2018-07-30 10:41 | Diagnostic Imaging Report ---
Indication: Routine screening. Comparison is made with prior exam from 06/16/2017 and 05/07/2015. 2-D and 3-D bilateral screening mammography was performed with CAD. Both breasts are heterogeneously dense, limiting the sensitivity of mammography. The parenchymal pattern is stable. No mass or malignant-appearing microcalcifications are seen. The axillae are unremarkable. Impression: BI-RADS category 1 No mammographic features suspicious for malignancy are identified. ACR BI-RADS Category 1: Negative. Result letter will be mailed to the patient. Note: At least 10% of breast cancer is not imaged by mammography. Dictated by: Dictated on workstation # [id number]
--- NOTE | 2018-07-30 10:45 | Diagnostic Imaging Report ---
PROCEDURE: CT abdomen and pelvis with contrast. TECHNIQUE: Multiple contiguous axial images were obtained through the abdomen and pelvis after administration of intravenous contrast. INDICATION: Malignant stromal tumor. COMPARISON: 11/17/2017 and 01/26/2015. FINDINGS: No basilar mass or infiltrate. The liver is unremarkable. The gallbladder is surgically absent. There is some circumferential low-density thickening of the brantley of the distal stomach at the antrum and pylorus, probably exaggerated by the lack of distention; however, an element of active inflammation could not be excluded, correlate clinically. No perigastric edema, however. The liver, spleen, adrenals, pancreas, and kidneys are all negative. Some very mild hazy induration of the fat along the mesenteric root shows long-term either stability or improvement from the comparison studies. Post surgical changes in the right abdominal small bowel are noted. No bowel obstruction. No ascites, abscess, hematoma, or fluid collection. There is no lymphadenopathy. IMPRESSION: No bowel, biliary, or urinary tract obstruction. No lymphadenopathy. Low-density thickening of the brantley of the distal stomach and first duodenum are of uncertain significance. Postsurgical change. Otherwise, negative. Dictated by: Dictated on workstation # [id number]
== END ==
LOC: RAD 08:58
PROVIDERS: ATTEND Internal Medicine
DX: Z12.31 Encounter for screening mammogram for malignant neoplasm of breast (principal); C49.A0 Gastrointestinal stromal tumor, unspecified site
CPT/HCPCS: 36415; 74177; 77067; 82565; 84520

== ENCOUNTER → 2019-01-20 | Outpatient (CLI) | payer MEDICARE, OTHER ==
[~2019-01-20] MED LIST changes: +CATHETER FLUSH 10 ML SYR IV PRN; +HOLD METFORMIN - RECEIVED CONTRAST 20 ML VIAL IV SCH; -NS 250 ML (IVPB) BAG IV ONE
[2019-01-20 14:24] LABS: CREATININE SERUM 0.92 MG/DL (0.60-1.30)
--- NOTE | 2019-01-20 15:09 | Diagnostic Imaging Report ---
PROCEDURE: CT abdomen and pelvis with contrast. TECHNIQUE: Multiple contiguous axial images were obtained through the abdomen and pelvis after administration of intravenous contrast. Auto Exposure Controls were utilized during the CT exam to meet ALARA standards for radiation dose reduction. INDICATION: Gastric stromal tumor. Patient presents for followup. COMPARISON: Correlation is made with prior CT from 07/30/2018. FINDINGS: The lung bases are clear. No discrete liver mass is identified. Gallbladder is surgically absent. No biliary duct dilatation is seen. Pancreas is atrophic but otherwise unremarkable. Spleen is unremarkable. No adrenal mass is detected. The kidneys are unremarkable. Aorta is nonaneurysmal. Previously mild wall thickening of the distal stomach appears similar to prior exam. Small central mesenteric lymph nodes appear similar to prior exam. There is some mild rakesh densities to the central mesentery, nonspecific. Small and large bowel loops appear to be normal in caliber. There is a large amount of stool in the rectum and sigmoid colon. There is a large amount of streak artifact through the pelvis from patient's bilateral hip prostheses. No free fluid is detected in the abdomen or pelvis. No definite abdominal or pelvic lymphadenopathy is seen. IMPRESSION: Overall stable CT of the abdomen and pelvis when compared with the exam from 07/30/2018. No acute abnormality is detected. Dictated by: Dictated on workstation # [id number]
== END ==
LOC: RAD 13:27
PROVIDERS: ATTEND Internal Medicine
DX: D48.1 Neoplasm of uncertain behavior of connective and other soft tissue (principal); Z90.49 Acquired absence of other specified parts of digestive tract
CPT/HCPCS: 36415; 74177; 82565; 84520

== ENCOUNTER 2019-01-26 21:57 | Emergency (ER) | payer MEDICARE, OTHER ==
[~2019-01-26] VITALS: Ht 167.6 cm; Wt 66.2 kg
[~2019-01-26 21:57] MED LIST changes: -CATHETER FLUSH 10 ML SYR IV PRN; -HOLD METFORMIN - RECEIVED CONTRAST 20 ML VIAL IV SCH; -IOHEXOL 350 MG/ML 100 ML (OMNIPAQUE 350) VIAL IV ONE
--- OUTSIDE RECORDS SUMMARY | 2019-01-26 22:04 | XMS REPORT | Continuity of Care Document ---
Author Organization Unknown Address Unknown Allergies Active Description Code Type Severity Reaction Onset Reported/Identified Relationship to Patient Clinical Status Yes No Known Drug Allergies [id number] Drug Allergy Unknown N/A 11/11/2017 Medications There [...] 01/26/2015 Ot V58.61 01/26/2015 Ot V58.83 01/26/2015 DEBBIE ROCHA MD Ot V76.12 01/26/2015 DEBBIE ROCHA MD Ot 786.05 01/26/2015 DEBBIE ROCHA MD Ot V76.12 05/08/2015 DRAKE BUSTILLOS RESOLUTION EXPERT Ot V76.12 06/01/2015 DRAKE BUSTILLOS RESOLUTION EXPERT Ot V76.12 10/01/2015 DRAKE BUSTILLOS RESOLUTION EXPERT Ot V76.12 10/25/2015 DRAKE BUSTILLOS RESOLUTION EXPERT Ot R05 10/25/2015 DRAKE BUSTILLOS RESOLUTION EXPERT Ot R07.81 11/07/2015 DRAKE BUSTILLOS RESOLUTION EXPERT Ot R05 11/07/2015 DRAKE BUSTILLOS RESOLUTION EXPERT Ot R07.81 04/13/2016 VIKY FINN APRN Ot [...] ACTIVITY, GARDENING AND LANDSCAPING 05/08/2016 VIKY FINN APRN Ot Y99.8 OTHER EXTERNAL CAUSE STATUS 06/16/2017 [...] OTH SCREEN MAMMO-MALIGN NEOPLASM OF CHARLA 06/16/2017 DEBBIE ROCHA MD Ot 786.05 SHORTNESS OF BREATH 06/16/2017 DEBBIE ROCHA MD Ot V76.12 OTH SCREEN MAMMO-MALIGN NEOPLASM OF CHARLA 06/16/2017 DRAKE BUSTILLOS RESOLUTION EXPERT Ot V76.12 OTH SCREEN MAMMO-MALIGN NEOPLASM OF CHARLA 06/16/2017 DRAKE BUSTILLOS RESOLUTION EXPERT Ot R05 COUGH 06/16/2017 DRAKE BUSTILLOS RESOLUTION EXPERT Ot R07.81 PLEURODYNIA 06/16/2017 MEJIA BLAKE MD Ot Z12.31 ENCNTR SCREEN MAMMOGRAM FOR MALIGNANT NE 07/01/2017 JOSE VASQUEZ 3RD GRADE READING TEACHER Ot R10.11 RIGHT UPPER QUADRANT PAIN 07/01/2017 JOSE VASQUEZ 3[employer] GRADE READING TEACHER Ot R16.0 HEPATOMEGALY, NOT ELSEWHERE CLASSIFIED 07/07/2017 MEJIA BLAKE MD Ot Z12.31 ENCNTR SCREEN MAMMOGRAM FOR MALIGNANT NE 07/21/2017 JOSE VASQUEZ 3RD GRADE READING TEACHER Ot R10.11 RIGHT UPPER QUADRANT PAIN 07/21/2017 JOSE VASQUEZ 3RD GRADE READING TEACHER Ot R16.0 HEPATOMEGALY, NOT ELSEWHERE CLASSIFIED 07/21/2017 MEJIA BLAKE MD Ot K75.9 INFLAMMATORY LIVER DISEASE, UNSPECIFIED 07/21/2017 MEJIA BLAKE MD Ot R93.2 ABNORMAL FINDINGS ON DX IMAGING OF LIVER 07/28/2017 JOSE VASQUEZ 3RD GRADE READING TEACHER Ot R10.11 RIGHT UPPER QUADRANT PAIN 07/28/2017 JOSE VASQUEZ APRN Ot R16.0 HEPATOMEGALY, NOT ELSEWHERE CLASSIFIED 11/11/2017 MILES FERGUSON MD Ot E03.9 HYPOTHYROIDISM, UNSPECIFIED 11/11/2017 MILES FERGUSON MD Ot E11.65 TYPE 2 DIABETES MELLITUS WITH HYPERGLYCE 11/11/2017 MILES FERGUSON MD Ot I10 ESSENTIAL (PRIMARY) HYPERTENSION 11/11/2017 MILES FERGUSON MD Ot N39.0 URINARY TRACT INFECTION, SITE NOT SPECIF 11/11/2017 MILES FERGUSON MD Ot R63.1 POLYDIPSIA 11/11/2017 MILES FERGUSON MD Ot Z79.52 SENIOR LIVING (CURRENT) USE OF SYSTEMIC STER 11/13/2017 MILES FERGUSON MD Ot E03.9 HYPOTHYROIDISM, UNSPECIFIED 11/13/2017 MILES FERGUSON MD Ot E11.65 TYPE 2 DIABETES MELLITUS WITH HYPERGLYCE 11/13/2017 MILES FERGUSON MD Ot I10 ESSENTIAL (PRIMARY) HYPERTENSION 11/13/2017 MILES FERGUSON MD Ot N39.0 URINARY TRACT INFECTION, SITE NOT SPECIF 11/13/2017 MILES FERGUSON MD Ot R63.1 POLYDIPSIA 11/13/2017 MILES FERGUSON MD Ot Z79.52 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/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 OF SYSTEMIC STER 11/17/2017 ZINA SANDOVAL Ot E03.9 HYPOTHYROIDISM, UNSPECIFIED 11/17/2017 ZINA SANDOVAL Ot E11.65 TYPE 2 DIABETES MELLITUS WITH HYPERGLYCE 11/17/2017 ZINA SANDOVAL Ot E86.9 VOLUME DEPLETION, UNSPECIFIED 11/17/2017 ZINA SANDOVAL Ot N39.0 URINARY TRACT INFECTION, SITE NOT SPECIF 11/17/2017 ZINA SANDOVAL Ot Z79.84 SENIOR LIVING (CURRENT) USE OF ORAL HYPOGLYC 11/18/2017 ZINA SANDOVAL Ot E03.9 HYPOTHYROIDISM, UNSPECIFIED 11/18/2017 ZINA SANDOVAL Ot E11.65 TYPE 2 DIABETES MELLITUS WITH HYPERGLYCE 11/18/2017 ZINA SANDOVAL Ot E86.9 VOLUME DEPLETION, UNSPECIFIED 11/18/2017 ZINA SANDOVAL Ot N39.0 URINARY TRACT INFECTION, SITE NOT SPECIF 11/18/2017 ZINA SANDOVAL Ot Z79.84 SENIOR LIVING (CURRENT) USE OF ORAL HYPOGLYC 04/27/2018 MEJIA BLAKE MD, Ot E11.9 TYPE 2 DIABETES MELLITUS WITHOUT COMPLIC 04/27/2018 MEJIA BLAKE MD, Ot I10 ESSENTIAL (PRIMARY) HYPERTENSION 05/04/2018 MEJIA BLAKE MD, Ot E11.9 TYPE 2 DIABETES MELLITUS WITHOUT COMPLIC 05/04/2018 MEJIA BLAKE MD, Ot I10 ESSENTIAL (PRIMARY) HYPERTENSION 05/25/2018 MEJIA BLAKE MD, Ot E11.9 TYPE 2 DIABETES MELLITUS WITHOUT COMPLIC 05/25/2018 MEJIA BLAKE MD, Ot I10 ESSENTIAL (PRIMARY) HYPERTENSION 05/28/2018 MEJIA BLAKE MD, Ot E11.9 TYPE 2 DIABETES MELLITUS WITHOUT COMPLIC 05/28/2018 MEJIA BLAKE MD, Ot I10 ESSENTIAL (PRIMARY) HYPERTENSION 07/05/2018 MEJIA BLAKE MD, Ot E11.9 TYPE 2 DIABETES MELLITUS WITHOUT COMPLIC 07/05/2018 MEJIA BLAKE MD, Ot I10 ESSENTIAL (PRIMARY) HYPERTENSION 07/05/2018 MEJIA BLAKE MD, Ot E11.9 TYPE 2 DIABETES MELLITUS WITHOUT COMPLIC 07/05/2018 MEJIA BLAKE MD, Ot I10 ESSENTIAL (PRIMARY) HYPERTENSION 07/27/2018 MEJIA BLAKE MD, Ot Z12.31 ENCNTR SCREEN MAMMOGRAM FOR MALIGNANT NE 07/30/2018 DEBBIE ROCHA MD Ot V76.12 OTH SCREEN MAMMO-MALIGN NEOPLASM OF CHARLA 07/30/2018 DEBBIE ROCHA MD Ot 786.05 SHORTNESS OF BREATH 07/30/2018 DEBBIE ROCHA MD Ot V76.12 OTH SCREEN MAMMO-MALIGN NEOPLASM OF CHARLA 07/30/2018 DRAKE BUSTILLOS Ot V76.12 OTH SCREEN MAMMO-MALIGN NEOPLASM OF CHARLA 07/30/2018 DRAKE BUSTILLOSP Ot R05 COUGH 07/30/2018 DRAKE BUSTILLOSP Ot R07.81 PLEURODYNIA 07/30/2018 MEJIA BLAKE MD, Ot Z12.31 ENCNTR SCREEN MAMMOGRAM FOR MALIGNANT NE 07/30/2018 PEDRO, JOSE R 3RD GRADE READING TEACHER Ot R10.11 RIGHT UPPER QUADRANT PAIN 07/30/2018 JOSE VASQUEZ 3RD GRADE READING TEACHER Ot R16.0 HEPATOMEGALY, NOT ELSEWHERE CLASSIFIED 07/30/2018 MEJIA BLAKE MD, Ot K75.9 INFLAMMATORY LIVER DISEASE, UNSPECIFIED 07/30/2018 MEJIA BLAKE MD, Ot R93.2 ABNORMAL FINDINGS ON DX IMAGING OF LIVER 07/30/2018 MEJIA BLAKE MD Ot E11.9 TYPE 2 DIABETES MELLITUS WITHOUT COMPLIC 07/30/2018 MEJIA BLAKE MD Ot I10 ESSENTIAL (PRIMARY) HYPERTENSION 07/30/2018 MEJIA BLAKE MD, Ot Z12.31 ENCNTR SCREEN MAMMOGRAM FOR MALIGNANT NE 07/30/2018 MJEIA BLAKE MD, Ot Z12.31 ENCNTR SCREEN MAMMOGRAM FOR MALIGNANT NE 08/03/2018 MEJIA BLAKE MD, Ot C49.A0 GASTROINTESTINAL STROMAL TUMOR, UNSPECIF 08/03/2018 MEJIA BLAKE MD, Ot Z12.31 ENCNTR SCREEN MAMMOGRAM FOR MALIGNANT NE 08/05/2018 MEJIA BLAKE MD, Ot C49.A0 GASTROINTESTINAL STROMAL TUMOR, UNSPECIF 08/05/2018 MEJIA BLAKE MD, Ot Z12.31 ENCNTR SCREEN MAMMOGRAM FOR MALIGNANT NE 08/23/2018 MEJIA BLAKE MD, Ot C49.A0 GASTROINTESTINAL STROMAL TUMOR, UNSPECIF 08/23/2018 MEJIA BLAKE MD, Ot Z12.31 ENCNTR SCREEN MAMMOGRAM FOR MALIGNANT NE 08/24/2018 MEJIA BLAKE MD, Ot C49.A0 GASTROINTESTINAL STROMAL TUMOR, UNSPECIF 08/24/2018 MEJIA BLAKE MD, Ot Z12.31 ENCNTR SCREEN MAMMOGRAM FOR MALIGNANT NE 01/19/2019 DRAKE BUSTILLOS RESOLUTION EXPERT Ot V76.12 OTH SCREEN MAMMO-MALIGN NEOPLASM OF CHARLA 01/19/2019 DRAKE BUSTILLOS RESOLUTION EXPERT Ot R05 COUGH 01/19/2019 DRAKE BUSTILLOS RESOLUTION EXPERT Ot R07.81 PLEURODYNIA 01/19/2019 MEJIA BLAKE MD, Ot Z12.31 ENCNTR SCREEN MAMMOGRAM FOR MALIGNANT NE 01/19/2019 JOSE VASQUEZ 3RD GRADE READING TEACHER Ot R10.11 RIGHT UPPER QUADRANT PAIN 01/19/2019 JOSE VASQUEZ 3RD GRADE READING TEACHER Ot R16.0 HEPATOMEGALY, NOT ELSEWHERE CLASSIFIED 01/19/2019 MEJIA BLAKE MD, Ot K75.9 INFLAMMATORY LIVER DISEASE, UNSPECIFIED 01/19/2019 MEJIA BLAKE MD, Ot R93.2 ABNORMAL FINDINGS ON DX IMAGING OF LIVER 01/19/2019 MEJIA BLAKE MD, Ot E11.9 TYPE 2 DIABETES MELLITUS WITHOUT COMPLIC 01/19/2019 MEJIA BLAKE MD, Ot I10 ESSENTIAL (PRIMARY) HYPERTENSION 01/19/2019 MEJIA BLAKE MD, Ot C49.A0 GASTROINTESTINAL STROMAL TUMOR, UNSPECIF 01/19/2019 MEJIA BLAKE MD, Ot Z12.31 ENCNTR SCREEN MAMMOGRAM FOR MALIGNANT NE 01/21/2019 MEJIA BLAKE MD, Ot 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 Results Test [...] measurement by glucometer (mass/volume) 331 mg/dL 70-110 Complete urinalysis with reflex to culture - 11/16/17 22:23 Urine color determination YELLOW NRG Urine clarity determination CLEAR NRG Urine pH measurement by test strip 5 5-9 Specific gravity of urine by test strip 1.015 1.016- 1.022 Urine protein assay by test strip, semi-quantitative 1+ NEGATIVE Urine glucose detection by automated test strip 4+ NEGATIVE Erythrocytes detection in urine sediment by light microscopy NEGATIVE NEGATIVE Urine ketones detection by automated test strip 1+ NEGATIVE Urine nitrite detection by test strip NEGATIVE NEGATIVE Urine total bilirubin detection by test strip NEGATIVE NEGATIVE Urine urobilinogen measurement by automated test strip (mass/volume) NORMAL NORMAL Urine leukocyte esterase detection by dipstick 1+ NEGATIVE Automated urine sediment erythrocyte count by microscopy (number/high power field) [HPF] NRG Automated urine sediment leukocyte count by microscopy (number/high power field ) [HPF] NRG Bacteria detection in urine sediment by light microscopy NONE NRG Crystals detection in urine sediment by light microscopy NONE NRG Casts detection in urine sediment by light microscopy NONE NRG Mucus detection in urine sediment by light microscopy NEGATIVE NRG Complete urinalysis with reflex to culture NO NRG Capillary blood glucose measurement by glucometer (mass/volume) - 11/16/17 22: 38 Capillary blood glucose measurement by glucometer (mass/volume) 346 mg/dL 70-110 Complete blood count (CBC) with automated white blood cell (WBC) differential - 11/16/17 23:32 Blood leukocytes automated count (number/volume) 3.9 10*3/uL 4.3-11.0 Blood erythrocytes automated count (number/volume) 4.66 10*6/uL 4.35-5.85 Venous blood hemoglobin measurement (mass/volume) 14.3 g/dL 11.5-16.0 Blood hematocrit (volume fraction) 39 % 35-52 Automated erythrocyte mean corpuscular volume 84 [foz_us] 80-99 Automated erythrocyte mean corpuscular hemoglobin (mass per erythrocyte) 31 pg 25-34 Automated erythrocyte mean corpuscular hemoglobin concentration measurement ( mass/volume) 37 g/dL 32-36 Automated erythrocyte distribution width ratio 12.5 % 10.0-14.5 Automated blood platelet count (count/volume) 263 10*3/uL 130-400 Automated blood platelet mean volume measurement 9.6 [foz_us] 7.4-10.4 Automated blood neutrophils/100 leukocytes 54 % 42-75 Automated blood lymphocytes/100 leukocytes 36 % 12-44 Blood monocytes/100 leukocytes 9 % 0-12 Automated blood eosinophils/100 leukocytes 1 % 0-10 Automated blood basophils/100 leukocytes 0 % 0-10 Blood neutrophils automated count (number/volume) 2.1 10*3 1.8-7.8 Blood lymphocytes automated count (number/volume) 1.4 10*3 1.0-4.0 Blood monocytes automated count (number/volume) 0.3 10*3 0.0-1.0 Automated eosinophil count 0.0 10*3/uL 0.0-0.3 Automated blood basophil count (count/volume) 0.0 10*3/uL 0.0-0.1 Comprehensive metabolic panel - 11/16/17 23:32 Serum or plasma sodium measurement (moles/volume) 135 mmol/L 135-145 Serum or plasma potassium measurement (moles/volume) 3.9 mmol/L 3.6-5.0 Serum or plasma chloride measurement (moles/volume) 101 mmol/L 98-107 Carbon dioxide 21 mmol/L 21-32 Serum or plasma anion gap determination (moles/volume) 13 mmol/L 5-14 Serum or plasma urea nitrogen measurement (mass/volume) 15 mg/dL 7-18 Serum or plasma creatinine measurement (mass/volume) 1.05 mg/dL 0.60-1.30 Serum or plasma urea nitrogen/creatinine mass ratio 14 NRG Serum or plasma creatinine measurement with calculation of estimated glomerular filtration rate 52 NRG Serum or plasma glucose measurement (mass/volume) 406 mg/dL 70-105 Serum or plasma calcium measurement (mass/volume) 9.5 mg/dL 8.5-10.1 Serum or plasma total bilirubin measurement (mass/volume) 0.5 mg/dL 0.1-1.0 Serum or plasma alkaline phosphatase measurement (enzymatic activity/volume) 68 U/L 40-136 Serum or plasma aspartate aminotransferase measurement (enzymatic activity/ volume) 16 U/L 5-34 Serum or plasma alanine aminotransferase measurement (enzymatic activity/volume ) 23 U/L 0-55 Serum or plasma protein measurement (mass/volume) 6.9 g/dL 6.4-8.2 Serum or plasma albumin measurement (mass/volume) 3.9 g/dL 3.2-4.5 Lipase - 11/16/17 23:32 Lipase 9 U/L 8-78 Serum or plasma thyrotropin measurement by detection limit <=0.05 miu/l (units/ volume) - 11/16/17 23:32 Serum or plasma thyrotropin measurement by detection limit <=0.05 miu/l (units/ volume) 4.12 u[iU]/mL 0.35-4.94 Capillary blood glucose measurement by glucometer (mass/volume) - 11/17/17 01: 02 Capillary blood glucose measurement by glucometer (mass/volume) 217 mg/dL 70-110 [id number] - 07/30/18 09:20 Serum or plasma urea nitrogen measurement (mass/volume) 18 mg/dL 7-18 Serum or plasma creatinine measurement (mass/volume) 0.86 mg/dL 0.60-1.30 Serum or plasma urea nitrogen/creatinine mass ratio 21 NRG Serum or plasma creatinine measurement with calculation of estimated glomerular filtration rate > NRG [id number] - 01/20/19 13:36 Serum or plasma urea nitrogen measurement (mass/volume) 18 mg/dL 7-18 Serum or plasma creatinine measurement (mass/volume) 0.92 mg/dL 0.60-1.30 Serum or plasma urea nitrogen/creatinine mass ratio 20 NRG Serum or plasma creatinine measurement with calculation of estimated glomerular filtration rate 60 NRG Encounters ACCT No. Visit Date/Time Discharge Status Pt. Type Provider Facility Loc./Unit Complaint [id number] 01/20/2019 13:27:00 01/20/2019 23:59:59 CLS Outpatient MEJIA BLAKE MD [facility] RAD 6 MONTH F/U-ABN CT [id number] 07/30/2018 08:58:00 07/30/2018 23:59:59 CLS Outpatient MEJIA BLAKE MD [facility] RAD F/U STROMAL TUMOR [id number] 07/08/2018 14:30:00 07/08/2018 23:59:59 CLS Preadmit MEJIA BLAKE MD [facility] RAD SCREENING [id number] 07/05/2018 10:00:00 07/05/2018 23:59:59 CLS Preadmit MEJIA BLAKE MD [facility] DSME TYPE 2 DIABETES [id number] 04/05/2018 09:29:00 05/04/2018 00:01:00 DIS Outpatient MEJIA BLAKE MD [facility] DSME TYPE 2 DIABETES [id number] 11/16/2017 20:50:00 11/17/2017 01:20:00 DIS Emergency ZINA SANDOVAL [facility] ER ELEV BLOOD SUGAR [id number] 11/11/2017 20:02:00 11/11/2017 23:01:00 DIS Emergency MILES FERGUSON MD [facility] ER BLOOD GLUCOSE LEVEL OF 576 [id number] 07/01/2017 15:28:00 07/01/2017 23:59:59 CLS Outpatient MEJIA BLAKE MD [facility] LAB ABNORMAL US LIVER- HEPATITIS [id number] 06/29/2017 07:01:00 06/29/2017 23:59:59 CLS Outpatient JOSE VASQUEZ APRN [facility] RAD RUQ ABD PAIN [id number] 06/16/2017 09:57:00 06/16/2017 23:59:59 CLS Outpatient MEJIA BLAKE MD [facility] RAD SCREENING Z12.31 [id number] 04/13/2016 21:35:00 04/13/2016 22:58:00 DIS Emergency VIYK FINN 3RD GRADE READING TEACHER [facility] ER POSSIBLE INSECT BITE/ STING [id number] 10/01/2015 16:07:00 10/01/2015 23:59:59 CLS Outpatient DRAKE BUSTILLOS RESOLUTION EXPERT [facility] RAD COUGH WITH RT RIB PAIN [id number] 05/07/2015 11:25:00 05/07/2015 23:59:59 CLS Outpatient DRAKE BUSTILLOS RESOLUTION EXPERT [facility] RAD SCREENING [id number] 01/26/2015 14:56:00 01/26/2015 18:14:00 DIS Emergency FERNANDA OLIVERA MD [facility] ER RIGHT SIDE ABD PAIN [id number] 05/04/2014 08:06:00 05/04/2014 23:59:59 CLS Outpatient DEBBIE ROCHA MD [facility] RAD ROUTINE [id number] 06/14/2013 06:44:00 06/14/2013 23:59:59 CLS Outpatient DEBBIE ROCHA MD [facility] RAD SOB [id number] 05/03/2013 10:16:00 05/03/2013 23:59:59 CLS Outpatient AJ CARTER, DEBBIE [place] [facility] RAD SCREENING [id number] 01/26/2019 21:58:00 ACT Emergency ENIO CARTER, INGRID [place] [facility] ER HIGH BLOOD SUGAR [id number] 01/26/2015 18:19:00 Document Registration [id number] 01/26/2015 18:19:00 Document Registration [id number] 01/26/2015 18:19:00 Document Registration [id number] 01/26/2015 15:35:00 Document Registration [id number] 01/25/2013 10:30:00 Document Registration [id number] 01/05/2012 11:30:00 Document Registration [id number] 08/02/2010 08:53:00 Document Registration [id number] 12/05/2009 16:05:00 Document Registration
[2019-01-26 22:14] LABS: BASOPHILS % (AUTO) 0 % (0-10); EOSINOPHILS # (AUTO) 0.1 10^3/uL (0.0-0.3); EOSINOPHILS % (AUTO) 1 % (0-10); HEMATOCRIT 40 % (35-52); HEMOGLOBIN 13.8 G/DL (11.5-16.0); LYMPHOCYTES # (AUTO) 1.3 X 10^3 (1.0-4.0); LYMPHOCYTES % (AUTO) 25 % (12-44); MEAN CORPUSCULAR HEMOGLOBIN 31 PG (25-34); MEAN CORPUSCULAR HGB CONC 35 G/DL (32-36); MEAN CORPUSCULAR VOLUME 89 FL (80-99); MEAN PLATELET VOLUME 9.2 FL (7.4-10.4); MONOCYTES # (AUTO) 0.5 X 10^3 (0.0-1.0); MONOCYTES % (AUTO) 10 % (0-12); NEUTROPHILS # (AUTO) 3.3 X 10^3 (1.8-7.8); NEUTROPHILS % (AUTO) 64 % (42-75); PLATELET COUNT 240 10^3/uL (130-400); RED CELL DISTRIBUTION WIDTH 13.8 % (10.0-14.5); WHITE BLOOD COUNT 5.1 10^3/uL (4.3-11.0)
[2019-01-26 22:27] LABS: BILIRUBIN,URINE NEGATIVE (NEGATIVE); CLARITY,URINE CLEAR; COLOR,URINE YELLOW; GLUCOSE, URINE (UA) 4+ (NEGATIVE); KETONES,URINE 4+ (NEGATIVE); LEUKOCYTE ESTERASE ,URINE NEGATIVE (NEGATIVE); NITRITE,URINE NEGATIVE (NEGATIVE); PH,URINE 5 (5-9); PROTEIN,URINE NEGATIVE (NEGATIVE); UROBILINOGEN,URINE NORMAL (NORMAL)
[2019-01-26] MEDS ORDERED: inSUlin (REGULAR) HUMAN 1 UNIT/0.01 ML (CHARGE PER UNIT) ONE (23:23)
[2019-01-26 23:35] VITALS: BP 117/76
[2019-01-26 23:39] LABS: BACTERIA,URINE TRACE /HPF; SQUAMOUS EPITHELIAL CELL,UR 0-2 /HPF; WBC,URINE 0-2 /HPF
[2019-01-26 23:42] LABS: BILIRUBIN,TOTAL 0.4 MG/DL (0.1-1.0); CALCIUM 9.6 MG/DL (8.5-10.1); CREATININE SERUM 1.33 MG/DL (0.60-1.30); POTASSIUM 4.2 MMOL/L (3.6-5.0)
[2019-01-26 23:43] LABS: TOTAL PROTEIN 6.7 GM/DL (6.4-8.2)
--- NOTE | 2019-01-26 23:50 | ED General ---
General Chief Complaint: Glucose Problems Stated Complaint: HIGH BLOOD SUGAR Nursing Triage Note: Pt reports PCP changed insulin today. Pt checked ketones and was concerned ketones were high. Pt's fingerstick blood sugar at the time of assessment was 466. Pt reports feeling "fine". 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 She is having no abdominal pain nausea fevers chills. She has had a cold with runny nose and occasional dry nonproductive cough for the past couple weeks. She has plans to travel to [place] by [employer] next week. Her instructions were to come to the ER for ketones are positive and her blood sugar was over 250. Shes never had DKA. She was recently switched from Ogema, 2 NovoLog sliding scale +20 units of Levemir daily at bedtime. Allergies and Home Medications Allergies Coded Allergies: No Known Drug Allergies (Unverified , 11/11/17) Home Medications Ampicillin Trihydrate 500 Mg Capsule, 500 MG PO QID Prescribed by: ZINA GOODEN on 11/17/17 0050 Bisoprolol Fumarate/Hctz 1 Each Tablet, 1 TAB PC BID, (Reported) Cephalexin 500 Mg Capsule, 500 MG PO TID Prescribed by: MILES CROWLEY on 11/11/17 221 Levothyroxine Sodium 150 Mcg Tablet, 1 TAB PO DAILY, (Reported) Metformin HCl 500 Mg Tablet, 500 MG PO BID Prescribed by: MILES CROWLEY on 11/11/17 225 Prednisone 20 Mg Tab, 20 MG PO BID Prescribed by: VIKY FINN on 04/13/16 2252 Patient Home Medication List Home Medication List Reviewed: Yes Review of Systems Review of Systems Constitutional: No chills, No diaphoresis, No fever, No malaise EENTM: No hearing loss, No ear pain Respiratory: No cough, No short of breath Cardiovascular: No chest pain, No edema Gastrointestinal: No abdominal pain, No constipation, No diarrhea Genitourinary: No discharge, No dysuria Musculoskeletal: No back pain, No joint pain Past Cjypeca-Loddng-Ayvxus Hx Patient Social History Alcohol Use: Denies Use Recreational Drug Use: No Smoking Status: Never a Smoker Recent Foreign Travel: Yes ([place] two weeks ago) Contact w/Someone Who Travel: No Recent Infectious Disease Expo: No Recent Hopitalizations: No Physical Abuse: No Sexual Abuse: No Immunizations Up To Date Tetanus Booster (TDap): Unknown Seasonal Allergies Seasonal Allergies: No Past Medical History Surgeries: Yes Gallbladder, Orthopedic Respiratory: No Cardiac: Yes Hypertension 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 4oz. [id number]; 26.63 BMI Method:Stated General Appearance: No Apparent Distress, WD/WN Eyes: Bilateral Eye Normal Inspection, Bilateral Eye PERRL, Bilateral Eye EOMI HEENT: PERRL/EOMI, TMs Normal, Normal ENT Inspection, Pharynx Normal, Moist Mucous Membranes Neck: Full Range of Motion, Normal Inspection, Non Tender Respiratory: Lungs Clear, Normal Breath Sounds, No Accessory Muscle Use, No Respiratory Distress Cardiovascular: Regular Rate, Rhythm, No Edema, Normal Peripheral Pulses Gastrointestinal: Normal Bowel Sounds, Non Tender, Soft Extremity: Normal Capillary Refill, No Pedal Edema Neurologic/Psychiatric: Alert, Oriented x3, No Motor/Sensory Deficits, Normal Mood/Affect Progress/Results/Core Measures Suspected Sepsis Recent Fever Within 48 Hours: No Infection Criteria Present: None New/Unexplained Altered Menta: No Sepsis Screen: No Definite Risk SIRS Temperature:97.5 Pulse: 82 Respiratory Rate: 20 Laboratory Tests 01/26/19 22:04: White Blood Count 5.1 Blood Pressure 156 /88 Mean: 110 Laboratory Tests 01/26/19 22:04: Creatinine 1.33H, Platelet Count 240, Total Bilirubin 0.4 Results/Orders Lab Results Laboratory Tests Test 01/26/19 22:04 01/26/19 22:15 Range/Units White Blood Count 5.1 4.3-11.0 10^3/uL Red Blood Count 4.47 4.35-5.85 10^6/uL Hemoglobin 13.8 11.5-16.0 G/DL Hematocrit 40 35-52 % Mean Corpuscular Volume 89 80-99 FL Mean Corpuscular Hemoglobin 31 25-34 PG Mean Corpuscular Hemoglobin Concent 35 32-36 G/DL Red Cell Distribution Width 13.8 10.0-14.5 % Platelet Count 240 130-400 10^3/uL Mean Platelet Volume 9.2 7.4-10.4 FL Neutrophils (%) (Auto) 64 42-75 % Lymphocytes (%) (Auto) 25 12-44 % Monocytes (%) (Auto) 10 0-12 % Eosinophils (%) (Auto) 1 0-10 % Basophils (%) (Auto) 0 0-10 % Neutrophils # (Auto) 3.3 1.8-7.8 X 10^3 Lymphocytes # (Auto) 1.3 1.0-4.0 X 10^3 Monocytes # (Auto) 0.5 0.0-1.0 X 10^3 Eosinophils # (Auto) 0.1 0.0-0.3 10^3/uL Basophils # (Auto) 0.0 0.0-0.1 10^3/uL Sodium Level 136 135-145 MMOL/L Potassium Level 4.2 3.6-5.0 MMOL/L Chloride Level 98 98-107 MMOL/L Carbon Dioxide Level 18 L 21-32 MMOL/L Anion Gap 20 H 5-14 MMOL/L Blood Urea Nitrogen 13 7-18 MG/DL Creatinine 1.33 H 0.60-1.30 MG/DL Estimat Glomerular Filtration Rate 39 BUN/Creatinine Ratio 10 Glucose Level 478 *H 70-105 MG/DL Calcium Level 9.6 8.5-10.1 MG/DL Corrected Calcium 9.6 8.5-10.1 MG/DL Total Bilirubin 0.4 0.1-1.0 MG/DL Aspartate Amino Transf (AST/SGOT) 15 5-34 U/L Alanine Aminotransferase (ALT/SGPT) 21 0-55 U/L Alkaline Phosphatase 59 40-136 U/L Total Protein 6.7 6.4-8.2 GM/DL Albumin 4.0 3.2-4.5 GM/DL Urine Color YELLOW Urine Clarity CLEAR Urine pH 5 5-9 Urine Specific Peculiar 1.015 L 1.016-1.022 Urine Protein NEGATIVE NEGATIVE Urine Glucose (UA) 4+ H NEGATIVE Urine Ketones 4+ H NEGATIVE Urine Nitrite NEGATIVE NEGATIVE Urine Bilirubin NEGATIVE NEGATIVE Urine Urobilinogen NORMAL NORMAL MG/DL Urine Leukocyte Esterase NEGATIVE NEGATIVE Urine RBC (Auto) NEGATIVE NEGATIVE Urine RBC NONE /HPF Urine WBC 0-2 /HPF Urine Squamous Epithelial Cells 0-2 /HPF Urine Crystals NONE /LPF Urine Bacteria TRACE /HPF Urine Casts NONE /LPF Urine Mucus NEGATIVE /LPF Urine Culture Indicated NO My Orders Orders - INGRID STEEN Insulin (Regular) Human (Humulin R (Per (01/26/19 23:23) Medications Given in ED Current Medications Medications Dose Ordered Sig/Dane Route Start Time Stop Time Status Last Admin Dose Admin Insulin Human Regular 1 unit STK-MED ONCE .ROUTE 01/26/19 23:23 01/26/19 23:26 DC 01/26/19 23:27 10 UNIT Vital Signs/I&O 01/26/19 22:07 Temp 97.5 Pulse 82 Resp 20 B/P (MAP) 156/88 (110) Pulse Ox 99 O2 Delivery Room Air Capillary Refill : Less Than 3 Seconds Blood Pressure Mean: 110 Progress Note : Time: 23:47 Progress Note Patient has ketones acidosis but the acidosis is mild at 18 bicarbonate. We discussed that since she's having no symptoms we could trial using insulin until her ketones clear. She Has declined being admitted. We'll have her check her urine every time she urinates and if the ketones are above 15 she can use an additional 10 units of NovoLog subcutaneous and if between 5 and 15 she can use 5 units. She should continue this additional insulin until it clears. We have given her good return precautions. She is happy with this plan. Departure Impression Primary Impression: Hyperglycemia Additional Impression: Diabetes mellitus Qualified Codes: E11.8 - Type 2 diabetes mellitus with unspecified complications Disposition: HOME, SELF-CARE Condition: Stable Departure-Patient Inst. Decision time for Depature: 23:30 Referrals: MEJIA BLAKE MD (PCP/Family) Primary Care Physician Patient Instructions: Diabetes Type 2 (DC) Add. Discharge Instructions: Every time you urinate check for ketones. If the Ketones are above 15 and give 10 additional units NovoLog subcutaneously. If the ketones are between 5 and 15 give 5 units additional NovoLog subcutaneously. When the ketones are clear to continue using your prescribed insulin dosing. Call your manufacturing project manager for further instructions tomorrow. Return to the nearest ER to begin to have abdominal pain nausea vomiting or blood sugar below 70 or above 600. Drink lots of fluids. All discharge instructions reviewed with patient and/or family. Voiced understanding. INGRID STEEN Jan 26, 2019 23:50
[2019-01-27] MEDS ORDERED: inSUlin (REGULAR) HUMAN 1 UNIT/0.01 ML (CHARGE PER UNIT) SC ONE
== END 2019-01-26 23:35 | disposition home or self-care (01) ==
LOC: EDUNIT# 21:57 → ER 21:58
DX: E11.65 Type 2 diabetes mellitus with hyperglycemia (principal); E11.10 Type 2 diabetes mellitus with ketoacidosis without coma; I10 Essential (primary) hypertension; E03.9 Hypothyroidism, unspecified; Z80.0 Family history of malignant neoplasm of digestive organs; Z79.84 Long term (current) use of oral hypoglycemic drugs; Z79.52 Long term (current) use of systemic steroids
CPT/HCPCS: 36415; 80053; 81000; 85025

== ENCOUNTER → 2021-01-15 | Outpatient (CLI) | payer MEDICARE, OTHER | LOC: LABNPT 08:32 | PROVIDERS: ATTEND Internal Medicine | DX: Z20.822 Contact with and (suspected) exposure to COVID-19 (principal) | CPT/HCPCS: 87635 ==

== ENCOUNTER → 2022-07-18 | Outpatient (CLI) | payer MEDICARE ==
[~2022-07-18] MED LIST changes: +BISO-2 PC; -BISO1TAB3 PC
--- NOTE | 2022-07-18 16:46 | Diagnostic Imaging Report ---
INDICATION: Routine screening. Comparison is made with prior mammograms from 07/30/2018 and 06/16/2017. 2-D and 3-D bilateral screening mammography was performed with CAD. Both breasts are heterogeneously dense, limiting the sensitivity of mammography. No spiculated mass or malignant-appearing microcalcifications are seen. Axillae are unremarkable. IMPRESSION: BI-RADS Category 1. No mammographic features suspicious for malignancy are identified. ACR BI-RADS Category 1: Negative. Result letter will be mailed to the patient. Note: At least 10% of breast cancer is not imaged by mammography. Dictated by: Dictated on workstation # [id number]
== END ==
LOC: RAD 10:54
PROVIDERS: ATTEND Internal Medicine
DX: Z12.31 Encounter for screening mammogram for malignant neoplasm of breast (principal)
CPT/HCPCS: 77063; 77067

== ENCOUNTER → 2023-05-05 | Outpatient (CLI) | payer MEDICARE | LOC: CARD 10:45 | PROVIDERS: ATTEND Internal Medicine Cardiovascular Disease | DX: I34.0 Nonrheumatic mitral (valve) insufficiency (principal); I37.1 Nonrheumatic pulmonary valve insufficiency; I10 Essential (primary) hypertension; I25.10 Atherosclerotic heart disease of native coronary artery without angina pectoris | CPT/HCPCS: 93306 ==

== ENCOUNTER → 2023-05-06 | Outpatient (CLI) | payer MEDICARE ==
[~2023-05-06] MED LIST changes: +CATHETER FLUSH 10 ML SYR IVP PRN
[2023-05-06 12:54] VITALS: BP 186/87
[2023-05-06 12:57] VITALS: BP 171/93
--- NOTE | 2023-05-06 14:42 | Cardiology Stress Test Report ---
Stress Test Report Date of Procedure/Referring: Date of Procedure: May 06, 2023 PCP Mejia Blake MD Admitting Physician Admitting Physician: Attending Physician: Rebecca Catherine MD Indications: CP Baseline Heart Rate: 62 Baseline Blood Pressure: Blood Pressure Systolic: 171 Blood Pressure Diastolic: 93 Vital Signs Date Time Temp Pulse Resp B/P (MAP) Pulse Ox O2 Delivery O2 Flow Rate FiO2 05/06/23 12:54 85 186/87 (120) Baseline Vital Signs Vital Signs Date Time Temp Pulse Resp B/P (MAP) Pulse Ox O2 Delivery O2 Flow Rate FiO2 05/06/23 12:54 85 186/87 (120) Baseline EKG: Baseline EKG: NSR Summary: After explaining the procedure and details to the patient, she signed the consent and was brought to the stress nuclear laboratory. Patient exercised on standard Brigido protocol, EKG, heart rate and blood pressure were monitored continuously, resting and stress doses of radio tracer were injected, imaging was acquired and reviewed in the short axis, horizontal long axis and vertical long axis views Patient was able to exercise for a total of 3 minutes on Brigido protocol, METs 4.6 Maximum heart rate 145 Maximum blood pressure 186/87 Stress EKG, Minimal nondiagnostic changes Recovery EKG, Return to baseline TID: 1.07 SSS: 2 SDS: 0 EF: 68 Conclusion: Poor exercise tolerance for a total of 3 minutes on standard Briigdo protocol, 4.6 METS achieving 100% of maximal expected heart rate Appropriate heart rate response to exercise with hypertensive response to exercise with peak blood pressure 186/87 return to baseline during recovery Nondiagnostic EKG changes with exercise return to baseline during recovery No significant ischemia or infarction noted on SPECT images Normal left ventricular size, ejection fraction 68% Copy Copies To 1: MEJIA BLAKE MD, BASHAR J MD May 06, 2023 14:42
== END ==
LOC: CARD 10:49
PROVIDERS: ATTEND Internal Medicine Cardiovascular Disease
DX: R07.9 Chest pain, unspecified (principal)
CPT/HCPCS: 78452; 93017; A9502